=== PATIENT | male | born 1935 | race Caucasian/White ===

== ENCOUNTER 2017-02-09 18:07 | Emergency (ER) | payer MEDICARE, OTHER ==
[2017-02-09 18:42] LABS: BASOPHIL# 0.1 X 10^3uL (0.0-0.1); BASOPHILS 0.6 % (0.0-2.0); EOSINOPHILS 2.6 % (0.0-6.0); EOSINOPHILS# 0.2 X 10^3uL (0.0-0.4); HEMATOCRIT 47.6 % (42.0-54.0); HEMOGLOBIN 16.8 g/dL (14.0-18.0); LYMPHOCYTES 23.5 % (20.0-40.0); MEAN CELL VOLUME 97.2 fL (80.0-100.0); MEAN CORPUS. HGB CONCENTRATION 35.3 g/dL (32.0-36.0); MEAN CORPUSCULAR HEMOGLOBIN 34.3 pg (29.0-35.0); MEAN PLATELET VOLUME 10.1 fL (7.4-10.4); MONOCYTES# 0.9 X 10^3uL (0.2-1.0); NEUTROPHILS 62.3 % (54.0-75.0); NEUTROPHILS# 5.2 X 10^3uL (2.6-6.7); PLATELET COUNT 210 X 10^3uL (130-440); RED CELL DISTRIBUTION WIDTH 11.6 % (11.5-14.5); WHITE BLOOD COUNT 8.4 X 10^3uL (3.9-10.7)
[2017-02-09 18:48] LABS: BLOOD UREA NITROGEN 26 mg/dL (9-20); CALCIUM 9.4 mg/dL (8.4-10.2); CHLORIDE 100 mmol/L (98-107); GLUCOSE 126 mg/dL (70-100); MAGNESIUM 1.9 mg/dL (1.6-2.3); POTASSIUM 3.4 mmol/L (3.5-5.1); SODIUM 136 mmol/L (137-145)
[2017-02-09 19:01] LABS: TROPONIN I < 0.012 ng/mL (0.00-0.034)
--- NOTE | 2017-02-09 19:26 | RADIOLOGY REPORT ---
HISTORY: Shortness of breath. COMPARISON: 04/28/2015. FINDINGS: 1 view of the chest obtained. Heart is mildly enlarged. Aorta is tortuous. Central pulmonary vessels are grossly unchanged. There is mild left and right basilar atelectasis. No confluent alveolar infil trates. No pleural effusions. No pneumothorax. Catheter tubing overlies the right lung base. Impression: Stable mild cardiac enlargement and tortuosity of aorta. Bibasilar atelectasis. No evidence for congestive heart failure or volume overload. No definite evidence for pneumonia. Final Electronic Signature: This report was electronically signed by Olivier Machado MD, FACR on 7:24 PM. christy /
[2017-02-09 19:57] LABS: ARTERIAL BLOOD GAS HCO3 19.4 mmol/L (22-26); ARTERIAL BLOOD GAS PCO2 24.1 mmHg (35-45)
--- NOTE | 2017-02-09 21:31 | CT REPORT ---
HISTORY: Shortness of breath COMPARISON: Chest radiograph from same day TECHNIQUE: This examination was performed using automated exposure control, adjustment of mA or kV according to patient size, and/or use of iterative reconstruction technique. Axial CT imaging from the thoracic i nlet through the upper abdomen following administration of IV contrast during peak opacification of t he pulmonary arteries, multiplanar reformatted and 3-D images are evaluated. 100cc Isovue 300 contrast. FINDINGS: CTA: Pulmonary arteries are well opacified. No pulmonary thromboemboli identified. Main pulmonary art jacoby is not dilated. Mild cardiomegaly. Lungs/Pleura: Bibasilar parenchymal bands and groundglass opacity are present. No focal consolidation . No pleural effusion or pneumothorax. Trachea and central bronchi clear. Endobronchial filling defec ts noted in left posterior basilar segmental bronchi. Mediastinum: No mediastinal mass identified. Lymph Nodes: No enlarged lymph nodes by size criteria. Upper abdomen: Severe hepatic steatosis. Musculoskeletal: No suspicious osseous lesion identified. IMPRESSION: 1. No pulmonary thromboemboli identified. 2. Bibasilar parenchymal bands and atelectasis with endobronchial filling defects in left lower lobe. Correlate for possible aspiration. 3. Severe hepatic steatosis. Final Electronic Signature: This report was electronically signed by Phillip Marmolejo MD on 02/09/2017 9:29 PM. tom /
--- NOTE | 2017-02-09 22:31 | ER PHYSICIAN DOCUMENTATION ---
Physician Documentation [facility] Name:Artur Marie Age:81 yrs Sex:Male :1935 Arrival Date:02/09/2017 Time:18:07 BedTrauma-C Private MD:Yordan Angeles ED, Scott Disposition: 02/09 22:18 Critical Care: not applicable. sc Disposition: 02/09/17 22:12 Discharged to Home/Self Care. Impression: Dyspnea. - Condition is Fair. - Discharge Instructions: DYSPNEA. - Medical Reconciliation form form. - Follow up: Yordan Angeles MD; When: 1 - 2 days; Reason: Continuance of care. Follow up: Akila Singleton MD; When: 4- 6 days; Reason: Continuance of care. - Problem is an ongoing problem. - Symptoms are unchanged. HPI: 22:13 This 81 yrs old Male presents to ER via Walk In with complaints of Breathing sc Difficulty. 22:13 The patient has shortness of breath at rest, with light activity, while working. Onset: sc The symptom(s)/episode began/occurred 6 month(s) ago, and became worse today. Duration: The symptoms are chronic, are continuous. The patient's shortness of breath is aggravated by exertion. Associated signs and symptoms: Pertinent positives: non-productive cough. Severity of symptoms: At their worst the symptoms were moderate in the emergency department the symptoms are unchanged. The patient has experienced similar episodes in the past, chronically. Historical: - Allergies: No known drug Allergies; - Home Meds: 1. Viagra Oral 2. Valtrex Oral 3. Proscar Oral 4. Nexium Oral 5. Celebrex Oral 6. Ambien Oral 7. Flonase Nasal 8. Uloric oral 9. Alice Oral - PSHx: Appendectomy; KNEE SURGERY; - Ebola Screening: : No symptoms or risks identified at this time. . - Immunization history: Pneumococcal vaccine status is unknown, Flu Vaccine < 1 year. - Social history: Smoking status: Patient states former smoker of tobacco. ROS: 22:14 Constitutional: Negative for fever, chills, and weight loss. sc Eyes: Negative for injury, pain, redness, and discharge. ENT: Negative for injury, pain, and discharge. Neck: Negative for injury, pain, and swelling. Cardiovascular: Negative for chest pain, palpitations, and edema. Abdomen/GI: Negative for abdominal pain, nausea, vomiting, diarrhea, and constipation. Back: Negative for injury and pain. MS/Extremity: Negative for injury and deformity. Skin: Negative for injury, rash, and discoloration. 22:14 Neuro: Negative for headache, weakness, numbness, tingling, and seizure. sc 22:14 Respiratory: Positive for cough, shortness of breath, Negative for hemoptysis, orthopnea, pleurisy. Exam: Constitutional: This is a well developed, well nourished patient who is awake, alert, and in no acute distress. Head/Face: Normocephalic, atraumatic. Eyes: Pupils equal round and reactive to light, extra-ocular motions intact. Lids and lashes normal. Conjunctiva and sclera are non-icteric and not injected. Cornea within normal limits. Periorbital areas with no swelling, redness, or edema. Chest/axilla: Normal chest wall appearance and motion. Nontender with no deformity. No lesions are appreciated. Abdomen/GI: Soft, non-tender, with normal bowel sounds. No distension or tympany. No guarding or rebound. No evidence of tenderness throughout. Back: No spinal tenderness. No costovertebral tenderness. Full range of motion. 22:14 Skin: Warm, dry with normal turgor. Normal color with no rashes, no lesions, and no sc evidence of cellulitis. 22:14 Cardiovascular: Rate: normal, Rhythm: regular. 22:14 Respiratory: mild respiratory distress is noted, Respirations: shallow respirations, that is mild, tachypnea, Breath sounds: are normal, clear throughout. 22:25 Abdomen/GI: Palpation: abdomen is soft and non-tender. tl1 22:25 Back: CVA tenderness, is absent. tl1 22:25 Musculoskeletal/extremity: Exam is negative for acute changes. 22:25 Skin: Exam negative for acute changes. 22:25 Neuro: Exam negative for acute changes. Vital Signs: 18:15 BP 125 / 80 (auto/); Resp 32; Temp 98.7(O); Weight 102.06 kg (R); Height 6 ft. 0 in. lpr (182.88 cm); Pain 0/10; 18:16 Pulse Ox 95% 4 lpm ; lpr 18:30 BP 124 / 79 (auto/); lpr 18:31 Pulse 81 MON; Resp 42; Pulse Ox 84% on 4 lpm NC; lpr 19:01 Pulse 82 MON; Resp 23; Pulse Ox 98% on BiPAP; lpr 19:30 BP 112 / 77 (auto/); lpr 19:31 Pulse 86 MON; Resp 24; Pulse Ox 92% on BiPAP; lpr 19:45 BP 127 / 79 (auto/); lpr 19:46 Pulse 83 MON; Resp 29; Pulse Ox 98% on BiPAP; lpr 20:00 BP 123 / 87 (auto/); lpr 20:01 Pulse 85 MON; Resp 22; Pulse Ox 96% on 3 lpm NC; lpr 21:26 Pulse 75 MON; Resp 22; Pulse Ox 95% on R/A; lpr 21:30 BP 134 / 84 (auto/); lpr 21:56 Pulse 73 MON; Resp 20; Pulse Ox 94% on R/A; lpr 22:00 BP 138 / 83 (auto/); lpr 22:28 BP 140 / 86; Pulse 75; Resp 22; Pulse Ox 92% on R/A; mv 18:15 Body Mass Index 30.52 (102.06 kg, 182.88 cm) lpr MDM: 18:24 Patient medically screened. tl1 22:15 Differential diagnosis: CHF exacerbation, Myocardial Infarction pulmonary edema, sc Pulmonary Embolism reactive airway disease, Unstable Angina. Antibiotic administration: Not indicated. Data reviewed: vital signs, nurses notes, lab test result(s), EKG, radiologic studies, and as a result, I will continue to observe the patient, order radiologic studie(s), CT scan. Data interpreted: Pulse oximetry: on room air is 90 %. Counseling: I had a detailed discussion with the patient and/or guardian regarding: the historical points, exam findings, and any diagnostic results supporting the discharge/admit diagnosis, lab results, radiology results, the need for outpatient follow up, for a referral to a specialist, to return to the emergency department if symptoms worsen or persist or if there are any questions or concerns that arise at home, I recommended pulmonology consultation for chronic cough, dyspnea, atelectasis and left lower basilar abnormalities.. 22:21 ED course: Our 12-lead ED EKG was out of service so 12-lead on EMS monitor.. nm 22:30 EKG attached 2 02/09 18:59 Order name: CBC AUTO DIF, MDIF/RMOR IF IND; Complete Time: 19:21 EDND 02/09 19:19 Interpretation: WHITE BLOOD COUNT 8.4; HEMOGLOBIN 16.8; HEMATOCRIT 47.6; PLATELET COUNT tl1 210. 02/09 19:01 Order name: BASIC METABOLIC PANEL; Complete Time: 19:21 EDND 02/09 19:20 Interpretation: SODIUM 136; POTASSIUM 3.4; CHLORIDE 100; CARBON DIOXIDE 23; GLUCOSE tl1 126; BLOOD UREA NITROGEN 26; CREATININE 1.5; CALCIUM 9.4. 02/09 19:01 Order name: MAGNESIUM; Complete Time: 19:21 EDND 02/09 19:20 Interpretation: Normal: MAGNESIUM 1.9. [facility] 02/09 19:01 Order name: TROPONIN I; Complete Time: 19:16 EDND 02/09 19:20 Interpretation: Normal: TROPONIN I < 0.012; Normal. [facility] 02/09 19:27 Order name: BNP,NT-PRO; Complete Time: 19:43 [facility] 02/09 19:42 Interpretation: Normal. nm 02/09 19:59 Order name: ARTERIAL BLOOD GAS; Complete Time: 12:52 [facility] 02/11 12:51 Interpretation: ARTERIAL BLOOD GAS, pH ONLY 7.51; ARTERIAL BLOOD GAS PCO2 24.1; tl1 ARTERIAL BLOOD GAS PO2 133; ARTERIAL BLOOD GAS HCO3 19.4; ARTERIAL BLOOD GAS TOTAL CO2 20; ARTERIAL BLOOD GAS BASE EXCESS -4; ARTERIAL BLD GAS O2 SATURATION 99. 02/09 19:28 Order name: CHEST; SING[place]IEW [id number]; Complete Time: 19:43 [facility] 02/09 Interpretation: Normal Except: ., NAD. See radiologist report. nm 21:34 Order name: CAT SCAN; CHEST ANGIO [id number] [facility] 02/09 18:16 Order name: 12-lead EKG; Complete Time: 18:16 [facility] 02/09 18:16 Order name: Iv Saline Lock; Complete Time: 18:46 [facility] 02/09 18:16 Order name: Place Patient On Monitor; Complete Time: 18:46 [facility] 02/09 18:16 Order name: Pulse Ox Continuous; Complete Time: 18:46 lpr Dispensed Medications: No medications were administered Signatures: Michael Castellanos MD MD nm Harrell, Kenyetta, Dontrell Sharif RN, MD MD tl1 ashley hart, Jaclyn bw2
--- NOTE | 2017-02-09 22:31 | ER NURSING DOCUMENTATION ---
Nurse's Notes [facility] Name:Artur Marie Age:81 yrs Sex:Male :1935 Arrival Date:02/09/2017 Time:18:07 BedTrauma-C Private MD:Yordan Angeles Diagnosis:Dyspnea Presentation: 02/09 18:13 Acuity: PAM 2 lpr 18:13 Presenting complaint: Patient states: increased SOB today. Going on for last week. lpr Transition of care: patient was not received from another setting of care. 18:13 Method Of Arrival: Walk In lpr Triage Assessment: 18:14 General: Appears uncomfortable, Behavior is cooperative. Pain: Denies pain. EENT: Oral lpr mucosa is moist. Neuro: Level of Consciousness is awake, alert, obeys commands, Oriented to person, place, time, event. Cardiovascular: Rhythm is sinus rhythm. Respiratory: Reports shortness of breath at rest labored breathing Onset: The symptoms/episode began/occurred today, the patient has moderate shortness of breath. GI: Abdomen is obese, Denies nausea, pain. : No deficits noted. Derm: Skin is intact, is healthy with good turgor, Skin is clammy, Skin is normal. Musculoskeletal: Circulation, motion, and sensation intact Capillary refill < 3 seconds. Historical: - Allergies: No known drug Allergies; - Home Meds: 1. Viagra Oral 2. Valtrex Oral 3. Proscar Oral 4. Nexium Oral 5. Celebrex Oral 6. Ambien Oral 7. Flonase Nasal 8. Uloric oral 9. Alice Oral - PSHx: Appendectomy; KNEE SURGERY; - Ebola Screening: : No symptoms or risks identified at this time. . - Immunization history: Pneumococcal vaccine status is unknown, Flu Vaccine < 1 year. - Social history: Smoking status: Patient states former smoker of tobacco. Screenin:13 Infectious Disease Risk None. Abuse screen: Denies threats or abuse. Nutritional lpr screening: No deficits noted. Assessment: 19:12 Cardiovascular: Chest pain is denied. Respiratory: Airway is patent Respiratory effort lpr is labored, Respiratory pattern is tachypnea Breath sounds are diminished bilaterally. Vital Signs: 18:15 BP 125 / 80 (auto/); Resp 32; Temp 98.7(O); Weight 102.06 kg (R); Height 6 ft. 0 in. lpr (182.88 cm); Pain 0/10; 18:16 Pulse Ox 95% 4 lpm ; lpr 18:30 BP 124 / 79 (auto/); lpr 18:31 Pulse 81 MON; Resp 42; Pulse Ox 84% on 4 lpm NC; lpr 19:01 Pulse 82 MON; Resp 23; Pulse Ox 98% on BiPAP; lpr 19:30 BP 112 / 77 (auto/); lpr 19:31 Pulse 86 MON; Resp 24; Pulse Ox 92% on BiPAP; lpr 19:45 BP 127 / 79 (auto/); lpr 19:46 Pulse 83 MON; Resp 29; Pulse Ox 98% on BiPAP; lpr 20:00 BP 123 / 87 (auto/); lpr 20:01 Pulse 85 MON; Resp 22; Pulse Ox 96% on 3 lpm NC; lpr 21:26 Pulse 75 MON; Resp 22; Pulse Ox 95% on R/A; lpr 21:30 BP 134 / 84 (auto/); lpr 21:56 Pulse 73 MON; Resp 20; Pulse Ox 94% on R/A; lpr 22:00 BP 138 / 83 (auto/); lpr 22:28 BP 140 / 86; Pulse 75; Resp 22; Pulse Ox 92% on R/A; mv 18:15 Body Mass Index 30.52 (102.06 kg, 182.88 cm) lpr ED Course: 16:40 ABG drawn. (by ED staff). on oxygen. Jay test complete prior to ABG, after ABG drawn nf pressure held for 5 minutes and dressing applied. 18:08 Patient arrived in ED. arc 18:09 Yordan Angeles MD is Private Physician. arc 18:13 Triage completed. lpr 18:15 Valuables Remains with patient Patient has correct armband on for positive lpr identification. Placed in gown. Bed in low position. Call light in reach. Side rails up X2. director industrial on. Pulse ox on. NIBP on. 18:20 Inserted saline lock: 18 gauge in right antecubital area and blood collected. lpr 18:22 Inserted saline lock: 18 gauge in left antecubital area. lpr 18:23 Dontrell Webb MD is Attending Physician. tl1 18:27 Port Xray Completed. pm1 18:45 Assist ventilation BiPap. lpr 20:10 Attending Physician role handed off by Dontrell Webb MD wy 20:10 Michael Castellanos MD is Attending Physician. sc 20:[address] ca 20:50 Patient moved back from CT. ca 22:10 Yordan Angeles MD is Referral Physician. sc 22:11 patient was "road tested" with continuous pulse ox. Able to walk unassisted with RR of lpr 20-22 and Room Air sats of 90%. Dr. Castellanos informed. 22:11 Akila Singleton MD is Referral Physician. sc 22:18 Report given to Jenni Gr RN. lpr 22:30 EKG attached bw2 Administered Medications: No medications were administered Outcome: 22:12 Discharge ordered by MD. sc 22:28 Discharged to home via wheelchair. mv 22:28 Condition: improved 22:28 Discharge Assessment: Patient awake, alert and oriented x 3. No cognitive and/or functional deficits noted. Patient verbalized understanding of disposition instructions. 22:28 Discharge instructions given to patient, Instructed on discharge instructions, follow up and referral plans. 22:28 IV D/Jostin 22:30 Patient left the ED. mv Signatures: Fany Gr, NOÉ RN Michael Castellanos MD MD wy Kenyetta Harrell RN RN lpr Dilia Leal pm1 Arik Rivers mo Dontrell Webb MD MD tl1 Leah Castellanos, ashley Harrison mv Brain, [facility] bw2
== END 2017-02-09 22:31 | disposition home or self-care (01) ==
LOC: ER 18:07
DX: R06.00 Dyspnea, unspecified (principal); R05 Cough; R79.81 Abnormal blood-gas level; R06.02 Shortness of breath; Z79.899 Other long term (current) drug therapy
CPT/HCPCS: 71010; 71275; 80048; 82803; 83735; 83880; 84484; 85025; 99291; 99292